=== PATIENT | male | born 1965 | race Caucasian/White ===

== ENCOUNTER 2016-09-18 01:39 | Emergency (ER) | payer OTHER ==
[~2016-09-18] VITALS: Ht 176.5 cm; Wt 71.8 kg
[~2016-09-18 01:39] MED LIST: CYCL10TA9 PO; NPR500T PO
[2016-09-18] MEDS ORDERED: 0.9% Sodium Chloride 2,000 ML IV ONE (01:46)
[2016-09-18 01:48] VITALS: BP 148/103; PULSE 91; RESP 19; O2SAT 95
[2016-09-18] MEDS ORDERED: Ondansetron 2 mg/mL 2 mL Inj IVPUSH ONE (01:50)
[2016-09-18] MEDS: HYDROmorphone 1 mg/mL Inj IVPUSH PRN ×2 (02:18→03:29)
[2016-09-18 02:26] LABS: BASOPHILS % (AUTO) 0.4 % (0-3); EOSINOPHILS % (AUTO) 2.4 % (0-5); MONOCYTES % (AUTO) 8.4 % (4-12); Mean Corpuscular Hemoglobin 33.6 pg (27.0-35.0); Mean Corpuscular Volume 95.2 fL (81-100); NEUTROPHILS % (AUTO) 50.9 % (40-74); Platelet Count 244 bil/L (150-400)
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
[2016-09-18 02:46] LABS: INR 0.94 ratio
[2016-09-18 02:49] LABS: Magnesium 2.3 mg/dL (1.6-2.6)
[2016-09-18] MEDS ORDERED: _HYDROcodone/APAP 5-325 mg Tablet PO PRN (03:45)
[2016-09-18] MEDS ORDERED: HYDR-4003 PO (03:49)
[2016-09-18] MEDS ORDERED: IBUP-1827 PO (03:49)
[2016-09-18] MEDS ORDERED: SILV20CR4 TP (03:49)
[2016-09-18 04:21] VITALS: BP 137/90; PULSE 85; RESP 18; O2SAT 96
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
== END 2016-09-18 04:21 | disposition home or self-care (01) ==
LOC: SED 01:39
DX: T22.222A Burn of second degree of left elbow, initial encounter (principal); F10.120 Alcohol abuse with intoxication, uncomplicated; T31.0 Burns involving less than 10% of body surface; X03.0XXA Exposure to flames in controlled fire, not in building or structure, initial encounter; Y93.89 Activity, other specified; Y92.833 Campsite as the place of occurrence of the external cause; Y99.8 Other external cause status; F17.200 Nicotine dependence, unspecified, uncomplicated
CPT/HCPCS: 16020; 36415; 71010; 80053; 83735; 85025; 85610; 85730; 96361; 96374; 96375; 96376; 99285; G0480; J1170; J2405; J7030